=== PATIENT | female | born 2005 | race Caucasian/White ===

== ENCOUNTER 2024-05-25 22:12 | Emergency (ER) | payer OTHER ==
[~2024-05-25] VITALS: Ht 167.6 cm; Wt 65.8 kg
[2024-05-25 22:51] LABS: *URINE HCG, QUAL NEGATIVE (NEGATIVE)
[2024-05-26 00:24] VITALS: BP 110/62; TEMP 97.9; O2SAT 100
== END 2024-05-26 00:26 | disposition home or self-care (01) ==
LOC: ER 22:17
DX: N94.10 Unspecified dyspareunia (principal); R10.2 Pelvic and perineal pain
CPT/HCPCS: 84703; 87210; A4606; A4663